=== PATIENT | male | born 1940 | race Caucasian/White ===

== ENCOUNTER 2018-09-13 18:34 | Emergency (ER) | payer MEDICARE, OTHER ==
[2018-09-13] MEDS ORDERED: Acetaminophen/HYDROcodone 325-5 MG Tab ONE (19:30)
[2018-09-13] MEDS ORDERED: Sodium Chloride 0.9% 10 ML Syringe FLUSH PRN (19:39)
[2018-09-13] MEDS ORDERED: Sodium Chloride 0.9% 1,000 ML IV SCH (19:45)
[2018-09-13] MEDS ORDERED: HYDROmorphone 2 MG/ML SDV ONE (20:40)
--- NOTE | 2018-09-13 20:41 | EDM.PDOC ---
ED HPI GENERAL MEDICAL PROBLEM - General Chief Complaint: Abdominal Pain Stated Complaint: RIGHT ABDOMINAL PAIN Time Seen by Provider: 09/13/18 19:35 Source of Information: Reports: Patient, Family, RN History Limitations: Reports: No Limitations - History of Present Illness INITIAL COMMENTS - FREE TEXT/NARRATIVE: This 78 yr male presents with right upper abdominal pain, started tonight around 1730. Reports have Rudy schulteak for lunch and was walking dog this afternoon when pain started. Rates pain 8/10. States history of small gallstone in the past. Hx of CAD and hernia in past. States he does have loose stools and this isn't new for him and no diagnosis with this. states he takes Metoprolol and Crestor daily and Cilium husk to aide in BM. Right Upper Anterior Abdomen Pain Score (Numeric/FACES): 5 - Related Data Allergies Allergy/AdvReac Type Severity Reaction Status Date / Time No Known Allergies Allergy Verified 01/31/13 09:16 Home Meds: Home Meds Ascorbate Calcium [Vitamin C] 500 mg PO 01/31/13 [History] Aspirin [Adult Low Dose Aspirin EC] 81 mg PO DAILY 01/31/13 [History] Metoprolol Succinate 12.5 mg PO BID 01/31/13 [History] Nitroglycerin [Nitrostat] 0.3 mg SL PRN 01/31/13 [History] Rosuvastatin [Crestor] 10 mg PO DAILY 01/31/13 [History] ED ROS GENERAL - Review of Systems Review Of Systems: See Below Constitutional: Reports: Decreased Appetite. Denies: Fever, Chills HEENT: Reports: No Symptoms Respiratory: Denies: Shortness of Breath, Cough Cardiovascular: Denies: Chest Pain, Edema, Lightheadedness Endocrine: Reports: No Symptoms GI/Abdominal: Reports: Abdominal Pain, Decreased Appetite, Other (loose stools) . Denies: Nausea, Vomiting : Reports: No Symptoms Musculoskeletal: Denies: Neck Pain, Back Pain Skin: Reports: No Symptoms Neurological: Reports: No Symptoms Psychiatric: Reports: No Symptoms Hematologic/Lymphatic: Reports: No Symptoms Immunologic: Reports: No Symptoms ED EXAM, GI/ABD - Physical Exam Exam: See Below Exam Limited By: No Limitations General Appearance: Alert, No Apparent Distress Ears: Hearing Grossly Normal Nose: Normal Inspection Throat/Mouth: Normal Inspection, Normal Voice, No Airway Compromise Head: Atraumatic, Normocephalic Neck: Normal Inspection, Supple, Full Range of Motion Respiratory/Chest: No Respiratory Distress, Lungs Clear, Normal Breath Sounds, Chest Non-Tender Cardiovascular: Regular Rate, Rhythm, No Edema GI/Abdominal Exam: Normal Bowel Sounds, Soft, No Distention, Other (pain to RUQ of abdomin). No: Guarding, Rigid (Male) Exam: Deferred Rectal (Males) Exam: Deferred Back Exam: Normal Inspection, Full Range of Motion Extremities: Normal Inspection, Normal Range of Motion, Non-Tender, No Pedal Edema Neurological: Alert, Oriented, Normal Cognition Psychiatric: Normal Affect, Normal Mood Skin Exam: Warm, Dry, Normal Color Lymphatic: No Adenopathy Course - Vital Signs Last Recorded V/S: Last Vital Signs Temp 98.4 F 09/13/18 22:17 Pulse 80 09/13/18 22:17 Resp 17 09/13/18 22:17 BP 155/91 H 09/13/18 22:17 Pulse Ox 98 09/13/18 22:17 - Orders/Labs/Meds Labs: Laboratory Tests 09/13/18 09/13/18 09/13/18 Range/Units 19:35 19:35 19:36 WBC 8.9 (4.0-11.0) K/uL RBC 5.19 (4.50-6.50) M/uL Hgb 15.8 (13.0-18.0) g/dL Hct 45.3 (40.0-54.0) % MCV 87 (76-96) fL MCH 30.4 (27.0-32.0) pg MCHC 34.9 (31.0-35.0) g/dL RDW 12.9 (11.0-16.0) % Plt Count 202 (150-400) K/uL MPV 9.5 (6.0-10.0) fL Neut % (Auto) 69.5 (45.0-70.0) % Lymph % (Auto) 20.4 (20.0-40.0) % Citrus % (Auto) 7.5 (3.0-10.0) % Eos % (Auto) 2.2 (1.0-5.0) % Baso % (Auto) 0.4 (0.0-0.5) % Neut # (Auto) 6.17 (2.00-7.50) K/uL Lymph # (Auto) 1.81 (1.50-4.00) K/uL Citrus # (Auto) 0.67 (0.20-0.80) K/uL Eos # (Auto) 0.20 (0.04-0.40) K/uL Baso # (Auto) 0.04 (0.02-0.10) K/uL Sodium (136-145) mmol/L Potassium (3.5-5.1) mmol/L Chloride (98-107) mmol/L Carbon Dioxide (21.0-32.0) mmol/L Anion Gap (5.0-15.0) mmol/L BUN (8-26) mg/dL Creatinine (0.70-1.30) mg/dL Est Cr Clr Drug Dosing mL/min Estimated GFR (MDRD) (>60) MLS/MIN BUN/Creatinine Ratio (6-25) Glucose (74-100) mg/dL Calcium (8.5-10.1) mg/dL Total Bilirubin (0.0-1.0) mg/dL AST (15-37) U/L ALT (12-78) U/L Alkaline Phosphatase (46-116) U/L Total Protein (6.4-8.2) g/dL Albumin (3.4-5.0) g/dL Globulin (2.2-4.2) g/dL Albumin/Globulin Ratio (0.8-2.0) Lipase 267 D (73-393) U/L Urine Color Yellow Urine Appearance Clear (CLEAR) Urine pH 5.5 (5.0-8.0) Ur Specific [place] 1.025 (1.003-1.030) Urine Protein Negative (NEGATIVE) mg/dL Urine Glucose (UA) Negative (NEGATIVE) mg/dL Urine Ketones Trace H (NEGATIVE) mg/dL Urine Occult Blood Small H (NEGATIVE) Urine Nitrite Negative (NEGATIVE) Urine Bilirubin Negative (NEGATIVE) Urine Urobilinogen 0.2 (0.2-1.0) E.U./dL Ur Leukocyte Esterase Negative (NEGATIVE) Urine RBC 0-5 H /HPF Urine WBC 0-5 H /HPF 09/13/18 Range/Units 19:36 WBC (4.0-11.0) K/uL RBC (4.50-6.50) M/uL Hgb (13.0-18.0) g/dL Hct (40.0-54.0) % MCV (76-96) fL MCH (27.0-32.0) pg MCHC (31.0-35.0) g/dL RDW (11.0-16.0) % Plt Count (150-400) K/uL MPV (6.0-10.0) fL Neut % (Auto) (45.0-70.0) % Lymph % (Auto) (20.0-40.0) % Citrus % (Auto) (3.0-10.0) % Eos % (Auto) (1.0-5.0) % Baso % (Auto) (0.0-0.5) % Neut # (Auto) (2.00-7.50) K/uL Lymph # (Auto) (1.50-4.00) K/uL Citrus # (Auto) (0.20-0.80) K/uL Eos # (Auto) (0.04-0.40) K/uL Baso # (Auto) (0.02-0.10) K/uL Sodium 143 (136-145) mmol/L Potassium 4.3 (3.5-5.1) mmol/L Chloride 106 (98-107) mmol/L Carbon Dioxide 27.1 (21.0-32.0) mmol/L Anion Gap 14.2 (5.0-15.0) mmol/L BUN 26 (8-26) mg/dL Creatinine 1.01 (0.70-1.30) mg/dL Est Cr Clr Drug Dosing 70.08 mL/min Estimated GFR (MDRD) > 60 (>60) MLS/MIN BUN/Creatinine Ratio 25.7 H (6-25) Glucose 105 H (74-100) mg/dL Calcium 8.6 (8.5-10.1) mg/dL Total Bilirubin 1.6 H (0.0-1.0) mg/dL AST 91 H (15-37) U/L ALT 63 (12-78) U/L Alkaline Phosphatase 78 (46-116) U/L Total Protein 6.7 (6.4-8.2) g/dL Albumin 3.7 (3.4-5.0) g/dL Globulin 3.0 (2.2-4.2) g/dL Albumin/Globulin Ratio 1.2 (0.8-2.0) Lipase (73-393) U/L Urine Color Urine Appearance (CLEAR) Urine pH (5.0-8.0) Ur Specific [place] (1.003-1.030) Urine Protein (NEGATIVE) mg/dL Urine Glucose (UA) (NEGATIVE) mg/dL Urine Ketones (NEGATIVE) mg/dL Urine Occult Blood (NEGATIVE) Urine Nitrite (NEGATIVE) Urine Bilirubin (NEGATIVE) Urine Urobilinogen (0.2-1.0) E.U./dL Ur Leukocyte Esterase (NEGATIVE) Urine RBC /HPF Urine WBC /HPF Meds: Medications Discontinued Medications Generic Name Dose Route Start Last Admin Trade Name Freq PRN Reason Stop Dose Admin Hydrocodone Bitart/Acetaminophen 10 tab 09/13/18 19:30 [place] 325-5 Mg .ROUTE 09/13/18 19:31 .STK-MED ONE Hydromorphone HCl Confirm 09/13/18 20:40 09/13/18 20:49 Dilaudid Administered 09/13/18 20:41 Not Given Dose 2 mg .ROUTE .STK-MED ONE Hydromorphone HCl 0.5 mg 09/13/18 20:46 09/13/18 20:49 Dilaudid IVPUSH 09/13/18 20:47 0.5 mg ONETIME ONE Administration Sodium Chloride 1,000 mls @ 125 mls/hr 09/13/18 19:45 09/13/18 20:47 Normal Saline IV 125 mls/hr ASDIRECTED BERRY Administration Sodium Chloride 10 ml 09/13/18 19:39 Saline Flush FLUSH SEECOMMENT PRN Keep Vein Open - Re-Assessments/Exams Free Text/Narrative Re-Assessment/Exam: 09/13/18 20:45 CMP, CBC, U/A and CT of abdomen completed with gallstone noted to gallbladder. Notified pt and family of gallstone. Dilaudid 0.5 mg IV ordered, Nacl at 125cc/ hr ordered. Will discharge to home if pain improved and taking oral fluids with consult with general surgery. Departure - Departure Time of Disposition: 22:20 Disposition: Home, Self-Care 01 Condition: Fair Clinical Impression: Cholelithiasis, Abdominal pain - Discharge Information *PRESCRIPTION DRUG MONITORING PROGRAM REVIEWED*: Not Applicable *COPY OF PRESCRIPTION DRUG MONITORING REPORT IN PATIENT SRINIVASA: Not Applicable Instructions: Cholelithiasis, [id number] Referrals: PCP,None [Primary Care Provider] - Forms: ED Department Discharge, ED Return to Work/School Form Additional Instructions: Up as tolerated. Limit stairs, frequent bending and limit strenuous activity. Follow a low fat diet until you meet with the [facility]. [facility] department will contact you in the next 2 days. If they do not please contact them at [phone]. Please use the Hydrocodone 1 tab every 6 hours as needed for pain, take food with this medication. Ibuprofen 600mg may be taken as needed every 8 hours in addition to Hydrocodone. Please take food with Ibuprofen also. Zofran prescription is sent with. This medication will help with nausea. - Assessment/Plan Plan: Cholelithiasis: Discharge to home with assist of family. Hydrocodone/APAP 5/325mg PO every 6 hour prn pain, may use Ibuprofen 600 mg PO every 8 hour as needed, take medication with food. Rx for Zofran 4mg PO prn given to be filled in am. Will set up consult for general surgery at [facility]. Pt should hear from [facility] for appointment. Activity restrictions as needed to prevent pain, low fat diet as tolerated. Continue medications as at home. RTC or ER if symptoms worsen.
[2018-09-13] MEDS ORDERED: HYDROmorphone 2 MG/ML Syringe IVPUSH ONE (20:46)
--- NOTE | 2018-09-14 09:51 | CT ---
DATE OF SERVICE: 09/13/18 CLINICAL DATA: RIGHT ABDOMINAL PAIN. UNENHANCED ABDOMEN AND PELVIC CT: Multislice acquisition through the abdomen and pelvis without IV or oral contrast was performed. Axial images and sagittal and coronal reformations are reviewed. Comparison is made to a prior enhanced abdomen and pelvic CT dated 02/14/13. There are mild atelectatic changes in the dependent portion of both lungs and in both lung bases. The heart size is normal. There are moderate coronary artery calcifications. There is a large hiatal hernia containing most of the stomach. The unenhanced liver appears normal. No focal hepatic lesions. There is a densely calcified 13 mm gallstone noted within the gallbladder. No gallbladder wall thickening. No pericholecystic fluid. The spleen appears normal. The pancreas appears normal. The right and left adrenals appear normal. There is a 16 mm fluid density lesion projecting from the upper pole of the left kidney consistent with a renal cyst. There are small parapelvic cysts bilaterally. The kidneys otherwise appear normal. No nephrocalcinosis or nephrolithiasis. No hydronephrosis or hydroureter. The bladder is partially fluid filled. It appears normal. The prostate is enlarged. There are calcification within the prostate consistent with chronic prostatitis. No evidence of appendicitis. There is mild diverticulosis of the descending and sigmoid colon. No evidence of diverticulitis. There is a ventral hernia on the left lateral to the rectus abdominis muscle. It does contain a loop of colon. No evidence of obstruction associated with it. There is a right inguinal hernia containing a loop of small bowel. No evidence of obstruction associated with it. There is a fat-containing left inguinal hernia. No free air. No free fluid. No dilated loops of bowel. No adenopathy. No aortic aneurysm. There is degenerative disk disease throughout the lower thoracic and lumbar spine. IMPRESSION: Cholelithiasis. Multiple other findings as discussed above. No acute abnormalities. [id number] [facility]
== END 2018-09-13 22:20 | disposition home or self-care (01) ==
LOC: LB.ED 18:34
DX: K80.20 Calculus of gallbladder without cholecystitis without obstruction (principal); I25.10 Atherosclerotic heart disease of native coronary artery without angina pectoris; Z79.82 Long term (current) use of aspirin; Z79.899 Other long term (current) drug therapy
CPT/HCPCS: 36415; 74176; 80053; 81001; 83690; 85025; 96361; 96374; 99284; A9270; J1170; J7030

== ENCOUNTER 2018-09-28 23:37 | Emergency (ER) | payer MEDICARE, OTHER ==
[2018-09-28] MEDS ORDERED: Lidocaine 2% Jelly 10 ML Urojet ONE (23:59)
--- NOTE | 2018-09-29 00:22 | EDM.PDOC ---
ED HPI GENERAL MEDICAL PROBLEM - General Chief Complaint: Genitourinary Problem Stated Complaint: CANNOT PEE Time Seen by Provider: 09/29/18 00:05 Source of Information: Reports: Patient History Limitations: Reports: No Limitations - History of Present Illness INITIAL COMMENTS - FREE TEXT/NARRATIVE: 78 yr male presents with retention of urination. Pt had laproscopic surgery Thursday and was discharged Thursday night and has been unable to void Thursday. He hasn't had a BM yet. He has some Hydrocodone/APAP at home. States his last dose was around 1pm today. States no history of prostate problems in the past, but does have some constipation history. He had been having a low fat diet. - Related Data Allergies Allergy/AdvReac Type Severity Reaction Status Date / Time No Known Allergies Allergy Verified 09/29/18 00:22 Home Meds: Home Meds Ascorbate Calcium [Vitamin C] 500 mg PO 01/31/13 [History] Aspirin [Adult Low Dose Aspirin EC] 81 mg PO DAILY 01/31/13 [History] Metoprolol Succinate 12.5 mg PO BID 01/31/13 [History] Nitroglycerin [Nitrostat] 0.3 mg SL PRN 01/31/13 [History] Rosuvastatin [Crestor] 10 mg PO DAILY 01/31/13 [History] Past Medical History - Past Health History Medical/Surgical History: Denies Medical/Surgical History Cardiovascular History: Reports: Stents ED ROS GENERAL - Review of Systems Review Of Systems: See Below Constitutional: Reports: No Symptoms HEENT: Reports: Glasses Respiratory: Reports: No Symptoms Cardiovascular: Reports: No Symptoms GI/Abdominal: Reports: Other (abdominal pain is rated at "8" with coughing, but none now.). Denies: Diarrhea, Decreased Appetite : Reports: Urinary Retention. Denies: Dysuria, Hematuria Skin: Reports: Other (dressings intact to abdomen) Neurological: Reports: No Symptoms Psychiatric: Reports: No Symptoms ED EXAM, RENAL/ - Physical Exam Exam: See Below Exam Limited By: No Limitations General Appearance: Alert, No Apparent Distress Ears: Hearing Grossly Normal Throat/Mouth: Normal Voice, No Airway Compromise Head: Atraumatic, Normocephalic Neck: Normal Inspection, Supple, Non-Tender Respiratory/Chest: No Respiratory Distress, Lungs Clear, Normal Breath Sounds Cardiovascular: Regular Rate, Rhythm, No Edema GI/Abdominal: Soft, Non-Tender, No Distention Extremities: Normal Inspection, Normal Range of Motion, Non-Tender, No Pedal Edema Neurological: Alert, Oriented Psychiatric: Normal Affect, Normal Mood Skin Exam: Warm, Dry, Intact, Normal Color Course - Re-Assessments/Exams Free Text/Narrative Re-Assessment/Exam: 09/29/18 00:41 Pt tolerated urinary catheter without problems. Clear baldomero urine noted. Flomax 0.4 mg PO given. Will discharge to care of family. Instructions on use of pain medicine, cough drops or lozenge for sore throat and warm salt water gargle as needed. Departure - Departure Time of Disposition: 00:44 Disposition: Home, Self-Care 01 Condition: Good Clinical Impression: Retention of urine - Discharge Information *PRESCRIPTION DRUG MONITORING PROGRAM REVIEWED*: Not Applicable *COPY OF PRESCRIPTION DRUG MONITORING REPORT IN PATIENT SRINIVASA: Not Applicable - Assessment/Plan Plan: Discharge to family care. Continue with post op instructions. Continue with pain medicine as needed. Start Senna S to prevent constipation. Continue with diet as tolerated. Return to clinic in afternoon if unable to void.
[2018-09-29] MEDS ORDERED: Tamsulosin 0.4 MG Cap.ER PO ONE (00:29)
== END 2018-09-29 00:50 | disposition home or self-care (01) ==
LOC: LB.ED 23:37
DX: R33.9 Retention of urine, unspecified (principal); Z79.82 Long term (current) use of aspirin; Z79.899 Other long term (current) drug therapy
CPT/HCPCS: 51702; 51798; 99283; A9270

== ENCOUNTER 2019-09-20 10:49 | Emergency (ER) | payer MEDICARE, OTHER ==
[2019-09-20] MEDS ORDERED: Sodium Chloride 0.9% 10 ML Syringe FLUSH PRN (11:16)
--- NOTE | 2019-09-20 11:22 | EDM.PDOC ---
ED HPI GENERAL MEDICAL PROBLEM - General Chief Complaint: Abdominal Pain Stated Complaint: ABD PAIN/POSSIBLE BOWEL OBSTRUCTION Time Seen by Provider: 09/20/19 11:05 Source of Information: Reports: Patient, RN, RN Notes Reviewed History Limitations: Reports: No Limitations - History of Present Illness INITIAL COMMENTS - FREE TEXT/NARRATIVE: Patient reports acute onset RLQ pain since last PM patient describes as dull, aching, and non-radiating. Onset: Other (yesterday) Onset Date: 09/19/19 Onset Time: 20:00 Duration: Day(s): (1) Location: Reports: Abdomen (RLQ) Front/Back Body Image: 1 - pain Quality: Reports: Ache Severity: Moderate Improves with: Reports: None Worsens with: Reports: None Associated Symptoms: Denies: Confusion, Chest Pain, Cough, Fever/Chills, Headaches, Loss of Appetite, Malaise, Nausea/Vomiting, Rash, Shortness of Breath, Syncope, Weakness Right Lower Abdominal Pain Score (Numeric/FACES): 6 - Related Data Allergies Allergy/AdvReac Type Severity Reaction Status Date / Time No Known Allergies Allergy Verified 09/20/19 10:59 Home Meds: Home Meds Aspirin [Adult Low Dose Aspirin EC] 81 mg PO DAILY 01/31/13 [History] Metoprolol Succinate 12.5 mg PO BID 01/31/13 [History] Nitroglycerin [Nitrostat] 0.3 mg SL ASDIRECTED PRN 01/31/13 [History] Rosuvastatin [Crestor] 10 mg PO DAILY 01/31/13 [History] Past Medical History - Past Health History Medical/Surgical History: Denies Medical/Surgical History Cardiovascular History: Reports: Stents ED ROS GENERAL - Review of Systems Review Of Systems: See Below Constitutional: Reports: No Symptoms HEENT: Reports: No Symptoms Respiratory: Reports: No Symptoms Cardiovascular: Reports: No Symptoms Endocrine: Reports: No Symptoms GI/Abdominal: Reports: Abdominal Pain (RLQ). Denies: Anorexia, Black Stool, Bloody Stool, Constipation, Diarrhea, Decreased Appetite, Difficulty Swallowing, Distension, Flatus, Hematemesis, Hematochezia, Melena, Mucous in Stool, Nausea, Stool Incontinence, Vomiting Musculoskeletal: Reports: No Symptoms Skin: Reports: No Symptoms Neurological: Reports: No Symptoms ED EXAM, GENERAL - Physical Exam Exam: See Below Exam Limited By: No Limitations General Appearance: Alert, WD/WN, No Apparent Distress Ears: Normal External Exam, Normal Canal, Hearing Grossly Normal, Normal TMs Nose: Normal Inspection, Normal Mucosa, No Blood Throat/Mouth: Normal Inspection, Normal Lips, Normal Teeth, Normal Gums, Normal Oropharynx, Normal Voice, No Airway Compromise Head: Atraumatic, Normocephalic Neck: Normal Inspection, Supple, Non-Tender, Full Range of Motion Respiratory/Chest: No Respiratory Distress, Lungs Clear, Normal Breath Sounds, No Accessory Muscle Use, Chest Non-Tender Cardiovascular: Normal Peripheral Pulses, Regular Rate, Rhythm, No Edema, No Gallop, No JVD, No Murmur, No Rub GI/Abdominal: Normal Bowel Sounds, Soft, No Organomegaly, No Distention, No Abnormal Bruit, No Mass, Pelvis Stable, Tender (RLQ). No: Guarding, Rigid, Rebound, Abnormal Bowel Sounds, Mass, Hepatomegaly, Splenomegaly Back Exam: Normal Inspection, Full Range of Motion. No: CVA Tenderness (R), CVA Tenderness (L) Extremities: Normal Inspection, Normal Range of Motion, Non-Tender, Normal Capillary Refill, No Pedal Edema Neurological: Alert, Oriented, CN II-XII Intact, Normal Cognition, Normal Gait, Normal Reflexes, No Motor/Sensory Deficits Skin Exam: Warm, Dry, Intact, Normal Color, No Rash Lymphatic: No Adenopathy Course - Vital Signs Last Recorded V/S: Last Vital Signs Temp 98.3 F 09/20/19 13:04 Pulse 85 09/20/19 13:04 Resp 16 09/20/19 13:04 BP 159/86 H 09/20/19 13:04 Pulse Ox 98 09/20/19 13:04 - Orders/Labs/Meds Orders: Active Orders 24 hr Category Date Time Status Abdomen Pelvis w Cont [CT] Stat Exams 09/20/19 11:18 Taken Diatrizoate Jigna/Diatrizoate Na [Gastrografin 37%] Med 09/20/19 12:00 Active 30 ml PO ASDIRECTED Iodixanol [Visipaque 320] Med 09/20/19 13:00 Active 100 ml IV ASDIRECTED Sodium Chloride 0.9% [Saline Flush] Med 09/20/19 11:16 Active 10 ml FLUSH ASDIRECTED PRN Peripheral IV Insertion Adult [OM.PC] Routine Oth 09/20/19 11:16 Ordered Medication Orders Diatrizoate Meglum/Diatrizoate Sod (Gastrografin 37%) 30 ml PO ASDIRECTED BERRY Stop: 09/20/19 23:59 Iodixanol (Visipaque 320) 100 ml IV ASDIRECTED BERRY Stop: 09/20/19 23:59 Sodium Chloride (Saline Flush) 10 ml FLUSH ASDIRECTED PRN PRN Reason: Keep Vein Open Last Admin: 09/20/19 12:29 Dose: 10 ml Documented by: SONALI Labs: Laboratory Tests 09/20/19 09/20/19 Range/Units 11:17 11:17 WBC 8.5 (4.0-11.0) K/uL RBC 5.32 (4.50-6.50) M/uL Hgb 16.6 (13.0-18.0) g/dL Hct 46.5 (40.0-54.0) % MCV 87 (76-96) fL MCH 31.2 (27.0-32.0) pg MCHC 35.7 H (31.0-35.0) g/dL RDW 12.7 (11.0-16.0) % Plt Count 214 (150-400) K/uL MPV 9.6 (6.0-10.0) fL Neut % (Auto) 72.7 H (45.0-70.0) % Lymph % (Auto) 19.0 L (20.0-40.0) % Yell % (Auto) 6.8 (3.0-10.0) % Eos % (Auto) 1.3 (1.0-5.0) % Baso % (Auto) 0.2 (0.0-0.5) % Neut # (Auto) 6.15 (2.00-7.50) K/uL Lymph # (Auto) 1.61 (1.50-4.00) K/uL Yell # (Auto) 0.58 (0.20-0.80) K/uL Eos # (Auto) 0.11 (0.04-0.40) K/uL Baso # (Auto) 0.02 (0.02-0.10) K/uL Sodium 140 (136-145) mmol/L Potassium 3.8 (3.5-5.1) mmol/L Chloride 105 (98-107) mmol/L Carbon Dioxide 27.0 (21.0-32.0) mmol/L Anion Gap 11.8 (5.0-15.0) mmol/L BUN 23 (8-26) mg/dL Creatinine 1.16 (0.70-1.30) mg/dL Est Cr Clr Drug Dosing 60.04 mL/min Estimated GFR (MDRD) > 60 (>60) MLS/MIN BUN/Creatinine Ratio 19.8 (6-25) Glucose 107 H (74-100) mg/dL Calcium 8.6 (8.5-10.1) mg/dL Total Bilirubin 1.8 H (0.0-1.0) mg/dL AST 14 L (15-37) U/L ALT 20 (12-78) U/L Alkaline Phosphatase 52 (46-116) U/L C-Reactive Protein 3.1 H (0.0-3.0) mg/L Total Protein 7.0 (6.4-8.2) g/dL Albumin 4.0 (3.4-5.0) g/dL Globulin 3.0 (2.2-4.2) g/dL Albumin/Globulin Ratio 1.3 (0.8-2.0) Meds: Medications Generic Name Dose Route Start Last Admin Trade Name Freq PRN Reason Stop Dose Admin Diatrizoate Meglum/Diatrizoate Sod 30 ml 09/20/19 12:00 Gastrografin 37% PO 09/20/19 23:59 ASDIRECTED BERRY Iodixanol 100 ml 09/20/19 13:00 Visipaque 320 IV 09/20/19 23:59 ASDIRECTED BERRY Sodium Chloride 10 ml 09/20/19 11:16 09/20/19 12:29 Saline Flush FLUSH 10 ml ASDIRECTED PRN Administration Keep Vein Open Discontinued Medications Generic Name Dose Route Start Last Admin Trade Name Freq PRN Reason Stop Dose Admin Iodixanol 100 ml 09/20/19 12:00 09/20/19 12:35 Visipaque 320 IV 100 ml . DIRECTED BERRY Administration Ketorolac Tromethamine 15 mg 09/20/19 12:21 09/20/19 12:27 Toradol IVPUSH 09/20/19 12:22 15 mg ONETIME ONE Administration Ketorolac Tromethamine Confirm 09/20/19 12:33 09/20/19 13:07 Toradol Administered 09/20/19 12:34 Not Given Dose 30 mg .ROUTE .STK-MED ONE Sodium Chloride 50 ml 09/20/19 11:49 09/20/19 12:36 Normal Saline FLUSH 09/20/19 11:50 50 ml ONETIME ONE Administration - Radiology Interpretation CT Results Date: 09/20/19 CT Results Time: 13:20 (Right inguinal hernia without incarceration or abscess. O/W negative CT of A&P) - Re-Assessments/Exams Free Text/Narrative Re-Assessment/Exam: 09/20/19 13:33 Pain resolved post Toradol Departure - Departure Time of Disposition: 13:43 Disposition: Home, Self-Care 01 Condition: Good Clinical Impression: Inguinal hernia of right side without obstruction or gangrene - Discharge Information *PRESCRIPTION DRUG MONITORING PROGRAM REVIEWED*: Not Applicable *COPY OF PRESCRIPTION DRUG MONITORING REPORT IN PATIENT SRINIVASA: Not Applicable Instructions: Hernia, Adult Forms: ED Department Discharge, ED Return to Work/School Form Sepsis Event Note (ED) - Evaluation Sepsis Screening Result: No Definite Risk - Focused Exam Vital Signs: Vital Signs Temp Pulse Resp BP Pulse Ox 09/20/19 13:04 98.3 F 85 16 159/86 H 98 09/20/19 11:00 98.7 F 79 18 188/100 H 97 - My Orders Last 24 Hours: My Active Orders 09/20/19 11:16 Sodium Chloride 0.9% [Saline Flush] 10 ml FLUSH ASDIRECTED PRN Peripheral IV Insertion Adult [OM.PC] Routine 09/20/19 11:18 Abdomen Pelvis w Cont [CT] Stat 09/20/19 12:00 Diatrizoate Jigna/Diatrizoate Na [Gastrografin 37%] 30 ml PO ASDIRECTED 09/20/19 13:00 Iodixanol [Visipaque 320] 100 ml IV ASDIRECTED - Assessment/Plan Last 24 Hours: My Active Orders 09/20/19 11:16 Sodium Chloride 0.9% [Saline Flush] 10 ml FLUSH ASDIRECTED PRN Peripheral IV Insertion Adult [OM.PC] Routine 09/20/19 11:18 Abdomen Pelvis w Cont [CT] Stat 09/20/19 12:00 Diatrizoate Jigna/Diatrizoate Na [Gastrografin 37%] 30 ml PO ASDIRECTED 09/20/19 13:00 Iodixanol [Visipaque 320] 100 ml IV ASDIRECTED Plan: DIFFERENTIAL DIAGNOSES: Appendicits Bowel Obstruction Mesenteric Adenitis Muscle Strain Amongst Many Other INITIAL PLAN: (1) CBC, CMP, CRP (2) CT A&P w/contrast MDM: Patient has moderate RLQ abdominal which is concerning for acute appendicitis. Will perform serologic evaluation and CT of A&P. Patient initially refused analgesics, but later requested and will be given a reduced dose of Toradol based on his age. Patient verbalized moderate relief from his Toradol and has consumed PO contrast without difficulty.
[2019-09-20] MEDS ORDERED: Diatrizoate Meglumine/Diatrizoate Sodium 37% 30 ML Bottle PO SCH (12:00)
[2019-09-20] MEDS ORDERED: Iodixanol 652 MG/ML 100 ML Bottle IV SCH ×2 (12:00→13:00)
[2019-09-20] MEDS ORDERED: Ketorolac 60 MG/2 ML SDV IVPUSH ONE (12:21)
[2019-09-20] MEDS: Sodium Chloride 0.9% 50 ML SDV FLUSH ONE ×2 (12:29→12:36)
[2019-09-20] MEDS ORDERED: Ketorolac 30 MG/ML SDV ONE (12:33)
--- NOTE | 2019-09-21 12:18 | CT ---
DATE OF SERVICE: 09/20/19 CLINICAL DATA: RLQ PAIN ENHANCED ABDOMEN AND PELVIC CT: Multislice acquisition through the abdomen and pelvis with IV and oral contrast was performed. Comparison is made to a prior exam dated 09/13/18. There are persistent atelectatic/fibrotic changes in both lung bases. The heart is stable. There is a persistent large hiatal hernia, unchanged. The patient is status post cholecystectomy. The liver, spleen, pancreas, and right and left adrenals are stable. The right and left kidneys are stable. No hydronephrosis or hydroureter. The bladder is fluid-filled. It appears normal. The prostate remains enlarged, unchanged. There is a persistent right inguinal hernia containing a loop of small bowel. No evidence of obstruction associated with it. There is a persistent ventral hernia lateral to the rectus abdominis muscle containing fat. Descending colon does protrude into the hernia sac. No evidence of obstruction associated with it. The remainder of the exam is unchanged from the prior. [id number] [facility]
[2019-09-29] MEDS ORDERED: fentaNYL 100 MCG/2 ML SDV ONE (16:45)
== END 2019-09-20 13:52 | disposition home or self-care (01) ==
LOC: LB.ED 10:49
DX: K40.90 Unilateral inguinal hernia, without obstruction or gangrene, not specified as recurrent (principal); Z95.5 Presence of coronary angioplasty implant and graft; Z79.82 Long term (current) use of aspirin; Z79.899 Other long term (current) drug therapy
CPT/HCPCS: 36415; 74177; 80053; 85025; 86140; 96374; 99284; J1885; Q9963

== ENCOUNTER 2020-04-19 02:16 | Emergency (ER) | payer MEDICARE, OTHER ==
[2020-04-19] MEDS ORDERED: Clopidogrel 75 MG Tab PO ONE (02:45)
[2020-04-19] MEDS ORDERED: Sodium Chloride 0.9% 10 ML Syringe FLUSH PRN (02:45)
[2020-04-19] MEDS ORDERED: Heparin Sodium/D5W 25,000 UNITS/500 ML BAG IV SCH (02:45)
[2020-04-19] MEDS ORDERED: Morphine 2 MG/ML SYRINGE IVPUSH ONE (02:47)
[2020-04-19] MEDS ORDERED: Aspirin 81 MG Tab.Chew PO ONE (02:47)
[2020-04-19] MEDS ORDERED: Heparin Sodium 5,000 Units/ML Vial IVPUSH ONE (02:50)
[2020-04-19] MEDS: Nitroglycerin 0.4 MG Tab.SL SL ONE ×3 (02:54→03:25)
[2020-04-19] MEDS ORDERED: Sodium Chloride 0.9% 1,000 ML IV SCH (03:00)
--- NOTE | 2020-04-19 08:22 | CR ---
Date of Service: 04/19/20 Clinical Data: chest pain AP CHEST: Comparison is made to a prior exam dated 08/02/06. The heart size is normal. There is a large gas-containing mass posterior to the heart consistent with a large hiatal hernia. There is mild soft tissue fullness in the superior mediastinum and it does appear to be widened compared to the prior exam. I cannot exclude a mass or adenopathy. Chest CT is recommended. There are mild interstitial changes throughout both lungs. The lungs are otherwise clear. No areas of consolidation. No pneumothorax. No pleural effusions. [id number] [facility]
[2020-04-19 10:24] VITALS: PULSE 71
[2020-04-19 10:57] VITALS: BP 118/66
--- NOTE | 2020-05-21 14:34 | EDM.PDOC ---
ED HPI GENERAL MEDICAL PROBLEM - General Chief Complaint: General Stated Complaint: Severe Nosebleed Time Seen by Provider: 04/19/20 02:20 Source of Information: Reports: Patient History Limitations: Reports: No Limitations - History of Present Illness INITIAL COMMENTS - FREE TEXT/NARRATIVE: presented to the ER by EMS due to nasal bleed.. Patient reports that his BP has been on the higher side today, and noticed some nasal bleed that got worse. He applied pressure on it, but didn't completely control it. No SOB or dizziness. He called 911, upon arrival of the EMS, he started to c/o CO, EKG was done showed signs of ST elevation. No weakness or dizziness. H/o CAD in the past with stents placement. Onset: Today Duration: Hour(s): (6 nasal bleed) - Related Data Allergies Allergy/AdvReac Type Severity Reaction Status Date / Time No Known Allergies Allergy Verified 09/20/19 10:59 Home Meds: Home Meds Aspirin [Adult Low Dose Aspirin EC] 81 mg PO DAILY 01/31/13 [History] Metoprolol Succinate 12.5 mg PO BID 01/31/13 [History] Nitroglycerin [Nitrostat] 0.3 mg SL ASDIRECTED PRN 01/31/13 [History] Rosuvastatin [Crestor] 10 mg PO DAILY 01/31/13 [History] Past Medical History - Past Health History Medical/Surgical History: Denies Medical/Surgical History Cardiovascular History: Reports: Stents Gastrointestinal History: Reports: Cholelithiasis - Past Surgical History GI Surgical History: Reports: Hernia, Abdominal, Hernia, Inguinal Social & Family History - Caffeine Use Caffeine Use: Reports: Tea ED ROS GENERAL - Review of Systems Review Of Systems: See Below Constitutional: Reports: No Symptoms HEENT: Reports: Nosebleed Respiratory: Reports: No Symptoms Cardiovascular: Reports: Chest Pain Endocrine: Reports: No Symptoms GI/Abdominal: Reports: No Symptoms : Reports: No Symptoms Musculoskeletal: Reports: No Symptoms ED EXAM, GENERAL - Physical Exam Exam: See Below Exam Limited By: No Limitations General Appearance: Alert, WD/WN, Anxious Nose: Other (dried nasal blood. no active bleeding) Respiratory/Chest: No Respiratory Distress, Lungs Clear Cardiovascular: Normal Peripheral Pulses, Regular Rate, Rhythm, No Edema GI/Abdominal: Normal Bowel Sounds, Soft, Non-Tender Extremities: Normal Inspection Neurological: Alert, Oriented, No Motor/Sensory Deficits #1 Interpretation EKG Date: 04/19/20 Time: 02:25 Rhythm: NSR [place]: Normal P-Wave: Present QRS: Normal ST-T: Elevated QT: Normal Comparison: NA - No Prior EKG Course - Vital Signs Last Recorded V/S: Last Vital Signs Temp Pulse 71 04/19/20 02:48 Resp BP 118/66 04/19/20 03:25 Pulse Ox 98 04/19/20 02:48 - Orders/Labs/Meds Orders: Medication Orders Heparin Sodium/Dextrose (Heparin 25,000 Units In D5w 500 Ml) 25,000 units in 500 mls @ 20.6 mls/hr IV TITRATE BERRY; Protocol Last Admin: 04/19/20 02:56 Dose: 1,000 units/hr, 20 mls/hr Documented by: ABIMAEL Cosigned by: SHEILA Sodium Chloride (Sodium Chloride 0.9% 10 Ml Syringe) 10 ml FLUSH ASDIRECTED PRN PRN Reason: Keep Vein Open Labs: Laboratory Tests 04/19/20 04/19/20 04/19/20 Range/Units 02:49 02:49 02:49 WBC 16.0 H D (4.0-11.0) K/uL RBC 4.48 L (4.50-6.50) M/uL Hgb 13.6 (13.0-18.0) g/dL Hct 40.4 (40.0-54.0) % MCV 90 (76-96) fL MCH 30.4 (27.0-32.0) pg MCHC 33.7 (31.0-35.0) g/dL RDW 13.1 (11.0-16.0) % Plt Count 255 (150-400) K/uL MPV 9.7 (6.0-10.0) fL PT 11.4 (9.0-11.5) sec INR 1.1 (1.0-3.5) Sodium 141 (136-145) mmol/L Potassium 3.7 (3.5-5.1) mmol/L Chloride 106 (98-107) mmol/L Carbon Dioxide 24.8 (21.0-32.0) mmol/L Anion Gap 13.9 (5.0-15.0) mmol/L BUN 24 (8-26) mg/dL Creatinine 1.32 H (0.70-1.30) mg/dL Est Cr Clr Drug Dosing TNP Estimated GFR (MDRD) 52 L (>60) MLS/MIN BUN/Creatinine Ratio 18.2 (6-25) Glucose 165 H D (74-100) mg/dL Calcium 8.9 (8.5-10.1) mg/dL Troponin I 0.034 (0.000-0.060) ng/mL Meds: Medications Generic Name Dose Route Start Last Admin Trade Name Freq PRN Reason Stop Dose Admin Heparin Sodium/Dextrose 25,000 units in 500 mls @ 20.6 mls/hr 04/19/20 02:45 04/19/20 02:56 Heparin 25,000 Units In D5w 500 Ml IV 1,000 units/hr TITRATE BERRY 20 mls/hr Administration Protocol Sodium Chloride 10 ml 04/19/20 02:45 Sodium Chloride 0.9% 10 Ml Syringe FLUSH ASDIRECTED PRN Keep Vein Open Discontinued Medications Generic Name Dose Route Start Last Admin Trade Name Freq PRN Reason Stop Dose Admin Aspirin 324 mg 04/19/20 02:47 04/19/20 02:48 Aspirin 81 Mg Tab.Chew PO 04/19/20 02:48 324 mg ONETIME ONE Administration Clopidogrel Bisulfate 300 mg 04/19/20 02:45 04/19/20 03:21 Clopidogrel 75 Mg Tab PO 04/19/20 02:46 300 mg ONETIME ONE Administration Heparin Sodium (Porcine) 4,000 units 04/19/20 02:50 04/19/20 02:55 Heparin Sodium 5,000 Units/Ml Vial IVPUSH 04/19/20 02:51 4,000 units BOLUS ONE Administration Sodium Chloride 1,000 mls @ 500 mls/hr 04/19/20 03:00 04/19/20 02:45 Normal Saline IV 500 mls/hr ASDIRECTED BERRY Administration Morphine Sulfate 2 mg 04/19/20 02:47 04/19/20 03:02 Morphine 2 Mg/Ml Syringe IVPUSH 04/19/20 02:48 2 mg ONETIME ONE Administration Nitroglycerin 0.4 mg 04/19/20 02:45 04/19/20 03:25 Nitroglycerin 0.4 Mg Tab.Sl SL 04/19/20 02:46 0.4 mg ONETIME ONE Administration - Re-Assessments/Exams Free Text/Narrative Re-Assessment/Exam: Upon arrival - was placed on a tele monitor. IV line was established. Bleeding was controlled with pressure. No more bleeding. Labs were ordered. Called oxyacetylene cutter shipping lead person at [place]- recommended to start heparin and to avoid tPA at this time due to increase risk bleeding in the nose. Chest pain was controlled with Nitro and IV opioids. Pain down from 8 to 1. Heparin was started. Blood pressure improved with controlling the pain. Discussed with patient his clinical findings - agreed to be transferred by EMS to outside ER for higher level of cardiac care. Departure - Departure Time of Disposition: 03:30 Disposition: DC/Tfer to [facility] 02 Clinical Impression: HI, Myocardial infarction, Epistaxis not due to trauma - Discharge Information Referrals: PCP,None [Primary Care Provider] - Forms: ED Department Discharge - Problem List & Annotations (1) Epistaxis not due to trauma SNOMED Code(s): 696402112 Code(s): R04.0 - EPISTAXIS Status: Acute Priority: Medium (2) HI, Myocardial infarction SNOMED Code(s): 44674305 Code(s): I21.9 - ACUTE MYOCARDIAL INFARCTION, UNSPECIFIED Status: Acute Priority: High - Problem List Review Problem List Initiated/Reviewed/Updated: Yes - Assessment/Plan Plan: STEMI protocol was initiated and followed Heparin IV bolus and drip pain control vitals control and monitoring stabilization of nasal bleed transfer to a higher level of care..
== END 2020-04-19 04:34 ==
LOC: LB.ED 02:16
DX: R04.0 Epistaxis (principal); I21.9 Acute myocardial infarction, unspecified; I25.10 Atherosclerotic heart disease of native coronary artery without angina pectoris; Z95.5 Presence of coronary angioplasty implant and graft
CPT/HCPCS: 36415; 71045; 80048; 84484; 85027; 85610; 93005; 96365; 96366; 96374; 99285-25; A0425; A0429; A9270-GY; J1644; J2270; J7030

== ENCOUNTER 2024-01-28 12:06 | Emergency (ER) | payer MEDICARE, OTHER ==
[2024-01-28 12:48] LABS: BASOPHILS ABSOLUTE AUTO 0.04 K/uL (0.02-0.10); BASOPHILS PERCENT AUTO 0.4 % (0.0-0.5); EOSINOPHILS ABSOLUTE AUTO 0.05 K/uL (0.04-0.40); EOSINOPHILS PERCENT AUTO 0.6 % (1.0-5.0); HEMOGLOBIN 15.4 g/dL (13.0-18.0); LYMPHOCYTES ABSOLUTE AUTO 1.45 K/uL (1.50-4.00); MEAN CORPUSCULAR HEMOGLOBIN 31.2 pg (27.0-32.0); MEAN CORPUSCULAR HGB CONC 34.2 g/dL (31.0-35.0); MEAN CORPUSCULAR VOLUME 91 fL (76-96); MEAN PLATELET VOLUME 9.2 fL (6.0-10.0); MONOCYTES ABSOLUTE AUTO 0.53 K/uL (0.20-0.80); MONOCYTES PERCENT AUTO 5.8 % (3.0-10.0); NEUTROPHILS PERCENT AUTO 77.2 % (45.0-70.0); PLATELET COUNT,PLT 236 K/uL (150-400); RED BLOOD CELL COUNT 4.94 M/uL (4.50-6.50); RED CELL DISTRIBUTION WIDTH 12.9 % (11.0-16.0); WHITE BLOOD CELL COUNT,WBC 9.1 K/uL (4.0-11.0)
[2024-01-28 13:01] LABS: LIPASE 66 U/L (16-77)
[2024-01-28 13:06] LABS: A/G RATIO 1.3 (0.8-2.0); ALBUMIN 4.2 g/dL (3.4-5.0); ANION GAP 12.5 mmol/L (5.0-15.0); BUN/CREATININE RATIO 15.7 (6-25); CALCIUM 9.2 mg/dL (8.5-10.1); CARBON DIOXIDE,CO2 28.5 mmol/L (21.0-32.0); CREATININE 0.89 mg/dL (0.70-1.30); EST CRCL DRUG DOSING (CG) 67.54 mL/min; PROTEIN TOTAL,TP 7.4 g/dL (6.4-8.2)
[2024-01-28 13:43] LABS: APPEARANCE,URINE CLEAR (CLEAR); COLOR,URINE YELLOW
[2024-01-28 13:44] LABS: BILIRUBIN,URINE NEGATIVE (NEGATIVE); GLUCOSE,URINE NEGATIVE (NEGATIVE); KETONES,URINE 15 mg/dL (NEGATIVE); LEUKOCYTE ESTERASE,URINE NEGATIVE (NEGATIVE); NITRITE,URINE NEGATIVE (NEGATIVE); OCCULT BLOOD,URINE MODERATE (NEGATIVE); PROTEIN,URINE 30 mg/dL (NEGATIVE); UROBILINOGEN,URINE 0.2 E.U./dL (0.2-1.0); WBC,URINE NOT SEEN /HPF
[2024-01-28 13:45] LABS: AMORPHOUS SEDIMENT,URINE MODERATE /HPF; MUCUS,URINE FEW /HPF
[2024-01-28 13:46] LABS: C-REACTIVE PROTEIN < 5.0 mg/L (<5.0)
[2024-01-28] MEDS: Sodium Phosphate,Monobasic/Sodium Phosphate,Dibasic Enema 133 ML Bottle RECTAL ONE ×2 (15:28→15:52)
[2024-01-28] MEDS ORDERED: Magnesium Citrate Solution 296 ML Bottle ONE (16:30)
== END 2024-01-28 16:57 | disposition home or self-care (01) ==
LOC: LB.ED 12:06
DX: K59.00 Constipation, unspecified (principal); Z79.82 Long term (current) use of aspirin; Z79.899 Other long term (current) drug therapy
CPT/HCPCS: 36415; 74176; 80053; 81001; 83690; 85025; 86140; 99283; 99284; A9270-GY

== ENCOUNTER 2024-01-29 09:24 | Emergency (ER) | payer MEDICARE, OTHER ==
[2024-01-29 09:55] LABS: BASOPHILS ABSOLUTE AUTO 0.02 K/uL (0.02-0.10); BASOPHILS PERCENT AUTO 0.2 % (0.0-0.5); EOSINOPHILS ABSOLUTE AUTO 0.07 K/uL (0.04-0.40); EOSINOPHILS PERCENT AUTO 0.8 % (1.0-5.0); HEMATOCRIT 43.5 % (40.0-54.0); HEMOGLOBIN 14.8 g/dL (13.0-18.0); LYMPHOCYTES ABSOLUTE AUTO 1.21 K/uL (1.50-4.00); LYMPHOCYTES PERCENT AUTO 14.2 % (20.0-40.0); MEAN CORPUSCULAR HEMOGLOBIN 31.3 pg (27.0-32.0); MEAN CORPUSCULAR VOLUME 92 fL (76-96); MEAN PLATELET VOLUME 9.2 fL (6.0-10.0); MONOCYTES PERCENT AUTO 8.2 % (3.0-10.0); NEUTROPHILS ABSOLUTE AUTO 6.54 K/uL (2.00-7.50); NEUTROPHILS PERCENT AUTO 76.6 % (45.0-70.0); PLATELET COUNT,PLT 241 K/uL (150-400); RED BLOOD CELL COUNT 4.73 M/uL (4.50-6.50); RED CELL DISTRIBUTION WIDTH 12.9 % (11.0-16.0); WHITE BLOOD CELL COUNT,WBC 8.5 K/uL (4.0-11.0)
[2024-01-29] MEDS: Iopamidol 612 MG/ML 100 ML Bottle IV SCH (10:16)
[2024-01-29] MEDS: Sodium Chloride 0.9% 10 ML Syringe FLUSH PRN (10:16)
[2024-01-29] MEDS: Sodium Chloride 0.9% 50 ML SDV FLUSH ONE (10:16)
[2024-01-29 10:17] LABS: A/G RATIO 1.2 (0.8-2.0); ALBUMIN 3.7 g/dL (3.4-5.0); ANION GAP 8.5 mmol/L (5.0-15.0); BILIRUBIN TOTAL 2.3 mg/dL (0.0-1.0); BUN/CREATININE RATIO 15.5 (6-25); CALCIUM 9.2 mg/dL (8.5-10.1); CARBON DIOXIDE,CO2 29.4 mmol/L (21.0-32.0); CREATININE 0.97 mg/dL (0.70-1.30); EST CRCL DRUG DOSING (CG) 62.01 mL/min; POTASSIUM,K 3.9 mmol/L (3.5-5.1); PROTEIN TOTAL,TP 6.8 g/dL (6.4-8.2)
[2024-01-29 10:24] LABS: APPEARANCE,URINE SLIGHTLY CLOUDY (CLEAR); COLOR,URINE YELLOW
[2024-01-29 10:25] LABS: AMORPHOUS SEDIMENT,URINE FEW /HPF; BILIRUBIN,URINE NEGATIVE (NEGATIVE); GLUCOSE,URINE NEGATIVE (NEGATIVE); KETONES,URINE TRACE mg/dL (NEGATIVE); LEUKOCYTE ESTERASE,URINE NEGATIVE (NEGATIVE); NITRITE,URINE NEGATIVE (NEGATIVE); OCCULT BLOOD,URINE SMALL (NEGATIVE); PH,URINE 7.5 (5.0-8.0); PROTEIN,URINE TRACE mg/dL (NEGATIVE); RBC,URINE 0-5 /HPF; UROBILINOGEN,URINE 0.2 E.U./dL (0.2-1.0); WBC,URINE NOT SEEN /HPF
== END 2024-01-29 11:02 | disposition home or self-care (01) ==
LOC: LB.ED 09:24
DX: K40.90 Unilateral inguinal hernia, without obstruction or gangrene, not specified as recurrent (principal); I25.2 Old myocardial infarction; Z90.89 Acquired absence of other organs; Z79.82 Long term (current) use of aspirin; Z79.899 Other long term (current) drug therapy
CPT/HCPCS: 36415; 74177; 80053; 81001; 85025; 99284; J3490; Q9967

== ENCOUNTER 2024-02-25 19:05 | Observation (INO) | payer MEDICARE, OTHER ==
[2024-02-25 20:23] LABS: BASOPHILS ABSOLUTE AUTO 0.02 K/uL (0.02-0.10); BASOPHILS PERCENT AUTO 0.2 % (0.0-0.5); EOSINOPHILS ABSOLUTE AUTO 0.04 K/uL (0.04-0.40); EOSINOPHILS PERCENT AUTO 0.4 % (1.0-5.0); HEMATOCRIT 45.7 % (40.0-54.0); HEMOGLOBIN 15.8 g/dL (13.0-18.0); LYMPHOCYTES ABSOLUTE AUTO 0.66 K/uL (1.50-4.00); MEAN CORPUSCULAR HEMOGLOBIN 31.3 pg (27.0-32.0); MEAN CORPUSCULAR HGB CONC 34.6 g/dL (31.0-35.0); MEAN CORPUSCULAR VOLUME 91 fL (76-96); MEAN PLATELET VOLUME 9.5 fL (6.0-10.0); MONOCYTES ABSOLUTE AUTO 0.81 K/uL (0.20-0.80); MONOCYTES PERCENT AUTO 8.6 % (3.0-10.0); NEUTROPHILS ABSOLUTE AUTO 7.86 K/uL (2.00-7.50); NEUTROPHILS PERCENT AUTO 83.8 % (45.0-70.0); PLATELET COUNT,PLT 216 K/uL (150-400); RED BLOOD CELL COUNT 5.05 M/uL (4.50-6.50); RED CELL DISTRIBUTION WIDTH 12.6 % (11.0-16.0); WHITE BLOOD CELL COUNT,WBC 9.4 K/uL (4.0-11.0)
[2024-02-25 20:35] LABS: ANION GAP 9.6 mmol/L (5.0-15.0); BUN/CREATININE RATIO 15.2 (6-25); CALCIUM 9.7 mg/dL (8.5-10.1); CARBON DIOXIDE,CO2 32.1 mmol/L (21.0-32.0); CREATININE 1.32 mg/dL (0.70-1.30); EST CRCL DRUG DOSING (CG) 42.98 mL/min; POTASSIUM,K 4.7 mmol/L (3.5-5.1)
[2024-02-25 20:45] LABS: INFLUENZA A NAA NEGATIVE (NEGATIVE); INFLUENZA B NAA NEGATIVE (NEGATIVE)
[2024-02-25 20:47] LABS: CORONAVIRUS COVID-19 NAA POSITIVE (NEGATIVE)
[2024-02-25] MEDS: REMDESIVIR 200 MG in Sodium Chloride 0.9% 250 ML IV ONE (21:44)
[2024-02-25] MEDS: traMADol 50 MG Tab PO ONE (21:50)
[2024-02-25] MEDS: Sodium Chloride 0.9% 500 ML IV ONE (22:41)
[2024-02-26] MEDS: Sodium Chloride 0.9% 1,000 ML IV SCH (00:50)
[2024-02-26 08:36] LABS: A/G RATIO 1.2 (0.8-2.0); ALBUMIN 3.8 g/dL (3.4-5.0); BILIRUBIN TOTAL 1.1 mg/dL (0.0-1.0); PROTEIN TOTAL,TP 7.1 g/dL (6.4-8.2)
[2024-02-26 08:55] LABS: BILIRUBIN DIRECT 0.3 mg/dL (0.0-0.3)
[2024-02-26 08:56] LABS: BILIRUBIN INDIRECT 0.8 mg/dL (<= 0.7)
[2024-02-26] MEDS: Aspirin 81 MG Tab.EC PO SCH (09:31)
[2024-02-26] MEDS: Metoprolol Tartrate 25 MG Tab PO SCH (09:31)
[2024-02-26] MEDS: Lisinopril 5 MG Tab PO SCH (09:32)
[2024-02-26] MEDS: traMADol 50 MG Tab PO PRN (09:38)
[2024-02-26] MEDS: Racepinephrine 2.25% 0.5 ML Neb Soln INH ONE (13:53)
[2024-02-26] MEDS: Sodium Chloride 0.9% Inhalation Soln 3 ML Neb INH ONE (13:53)
[2024-02-26] MEDS: Racepinephrine 2.25% 0.5 ML Neb Soln NEB PRN (15:55)
[2024-02-26] MEDS: Sodium Chloride 0.9% Inhalation Soln 3 ML Neb INH PRN (15:56)
[2024-02-26] MEDS: REMDESIVIR 100 MG in Sodium Chloride 0.9% 250 ML IV ONE (18:06)
[2024-02-26] MEDS: Simvastatin 10 MG Tab PO SCH (19:51)
[2024-02-26] MEDS ORDERED: REMDESIVIR 100 MG in Sodium Chloride 0.9% 250 ML IV SCH (22:00)
[2024-02-27 09:30] LABS: A/G RATIO 1.2 (0.8-2.0); ALBUMIN 3.8 g/dL (3.4-5.0); BILIRUBIN DIRECT 0.2 mg/dL (0.0-0.3); BILIRUBIN INDIRECT 0.8 mg/dL (<= 0.7)
[2024-02-27] MEDS: REMDESIVIR 100 MG in Sodium Chloride 0.9% 250 ML IV ONE (15:29)
== END 2024-02-27 16:29 | disposition home or self-care (01) ==
LOC: LB.ED 19:05 → LB.MS 22:08
PROVIDERS: ADMIT Family Medicine; ATTEND Family Medicine
DX: J95.09 Other tracheostomy complication (principal); U07.1 COVID-19; J02.8 Acute pharyngitis due to other specified organisms; I25.10 Atherosclerotic heart disease of native coronary artery without angina pectoris; Z95.5 Presence of coronary angioplasty implant and graft; Z79.82 Long term (current) use of aspirin; Z79.899 Other long term (current) drug therapy
CPT/HCPCS: 0240U; 36415; 80048; 80076; 82947; 85025; 86140; 87651; 94640; 99222; 99232; 99238; A9270; J7030; J7040; 96365; 99285-25